=== PATIENT | male | born 1980 | race Hispanic/Latino ===

== ENCOUNTER 2021-12-28 10:43 | Day surgery (SDC) | payer MEDICAID ==
[2021-12-28] MEDS ORDERED: Albumin 25% 100 ML ONE ×2 (11:09→11:38)
[2021-12-28] MEDS ORDERED: Lidocaine 1% PF 5 ML VIAL ONE (11:09)
[2021-12-28 11:55] VITALS: BP 112/61; TEMP 98.5
== END 2021-12-28 12:35 | disposition home or self-care (01) ==
LOC: CSHULT 10:43
PROVIDERS: ATTEND Physician Assistant Medical
DX: K70.31 Alcoholic cirrhosis of liver with ascites (principal); K72.90 Hepatic failure, unspecified without coma; K76.7 Hepatorenal syndrome
CPT/HCPCS: 49083; P9047

== ENCOUNTER 2022-01-25 08:11 | Day surgery (SDC) | payer OTHER ==
[2022-01-25] MEDS ORDERED: Albumin 25% 200 ML ONE (08:51)
[2022-01-25] MEDS ORDERED: Sodium Bicarbonate 2.5 MEQ/5 ML VIAL ONE (08:51)
[2022-01-25] MEDS ORDERED: Lidocaine 1% (PF) 30 ML VIAL ONE (08:53)
[2022-01-25 09:07] VITALS: BP 122/73; TEMP 98.3
[2022-01-25 09:15] LABS: INR-International Normal Ratio 1.3; Prothrombin Time 13.8 sec (9.5-12.1)
[2022-01-25] MEDS ORDERED: FLU VACC QS2021-22(6MOS UP)/PF 60 MCG/0.5 ML SYRINGE IM ONE (09:15)
== END 2022-01-25 10:04 | disposition home or self-care (01) ==
LOC: CSHULT 08:11
PROVIDERS: ATTEND Physician Assistant Medical
DX: R18.8 Other ascites (principal)
CPT/HCPCS: 49083; 85610; J2001; P9047

== ENCOUNTER 2022-03-22 08:11 | Day surgery (SDC) | payer OTHER ==
[2022-03-22] MEDS ORDERED: Sodium Bicarbonate 2.5 MEQ/5 ML VIAL ONE (08:53)
[2022-03-22] MEDS ORDERED: Lidocaine 1% PF 5 ML VIAL ONE (08:53)
[2022-03-22] MEDS ORDERED: Albumin 25% 100 ML ONE ×2 (08:53)
[2022-03-22 10:49] VITALS: TEMP 98
== END 2022-03-22 10:40 | disposition home or self-care (01) ==
LOC: CSHULT 08:11
PROVIDERS: ATTEND Physician Assistant Medical
DX: R18.8 Other ascites (principal)
CPT/HCPCS: 49083; P9047

== ENCOUNTER 2022-04-05 09:39 | Day surgery (SDC) | payer OTHER ==
[2022-04-05] MEDS ORDERED: Lidocaine 1% PF 5 ML VIAL ONE (10:22)
[2022-04-05] MEDS ORDERED: Sodium Bicarbonate 2.5 MEQ/5 ML VIAL ONE (10:22)
[2022-04-05] MEDS ORDERED: Albumin 25% 200 ML ONE (10:22)
[2022-04-05 12:24] VITALS: TEMP 98.3
== END 2022-04-05 11:10 | disposition home or self-care (01) ==
LOC: CSHULT 09:39
PROVIDERS: ATTEND Physician Assistant Medical
DX: R18.8 Other ascites (principal)
CPT/HCPCS: 49083; P9047

== ENCOUNTER → 2022-04-19 | Day surgery (SDC) | payer OTHER ==
[~2022-04-19] MED LIST: Albumin 25% 200 ML ONE; Lidocaine 1% PF 5 ML VIAL ONE; Sodium Bicarbonate 2.5 MEQ/5 ML VIAL ONE
== END ==
LOC: CSHULT 10:27
PROVIDERS: ATTEND Physician Assistant Medical
DX: K70.31 Alcoholic cirrhosis of liver with ascites (principal); G93.40 Encephalopathy, unspecified; K76.7 Hepatorenal syndrome; K65.2 Spontaneous bacterial peritonitis; R60.0 Localized edema
CPT/HCPCS: 49083; P9047

== ENCOUNTER 2022-04-26 07:27 | Day surgery (SDC) | payer OTHER ==
[2022-04-26 07:03] VITALS: BMI 26.9
[2022-04-26] MEDS ORDERED: Lidocaine 1% PF 5 ML VIAL ONE (07:58)
[2022-04-26] MEDS ORDERED: Albumin 25% 200 ML ONE (07:58)
[2022-04-26] MEDS ORDERED: Sodium Bicarbonate 2.5 MEQ/5 ML VIAL ONE (07:59)
[2022-04-26 08:03] VITALS: BP 115/65; TEMP 97.8
== END 2022-04-26 10:04 | disposition home or self-care (01) ==
LOC: CSHULT 07:27
PROVIDERS: ATTEND Physician Assistant Medical
PROC: 0W9G3ZZ Drainage of Peritoneal Cavity, Percutaneous Approach (ICD-10-PCS; principal; 2022-04-26)
DX: R18.8 Other ascites (principal); Z88.8 Allergy status to other drugs, medicaments and biological substances
CPT/HCPCS: 49083; P9047

== ENCOUNTER 2022-05-03 11:25 | Observation (INO) | payer OTHER ==
[2022-05-03 12:09] LABS: Hemoglobin 9.4 g/dL (13.5-17.5); Mean Corpuscular HGB CONC 34.3 g/dL (32.0-36.0); Mean Corpuscular Hemoglobin 32.2 pg (27.0-33.0); Mean Corpuscular Volume 93.8 fl (81.2-95.1); Mean Platelet Volume 9.9 fl (7.4-10.4); Platelet Count 123 10x3/uL (150-450); RBC Distribution Width 13.3 % (11.5-14.5); Red Blood Cell (RBC) Count 2.92 10x6/uL (4.32-5.72); White Blood Cell (WBC) Count 3.1 10x3/uL (3.5-10.5)
[2022-05-03 12:18] LABS: ALT (SGPT) 15 U/L (8-55); AST (SGOT) 42 U/L (5-34); Albumin 2.8 g/dL (3.5-5.0); Alkaline Phosphatase 180 U/L (40-110); Anion Gap 12 mmol/L (10-20); BUN (Urea Nitrogen) 8 mg/dL (8.9-20.6); Bilirubin, Total 2.2 mg/dL (0.2-1.2); Calc. Creatinine Clearance 0 mL/min (70-130); Calcium 8.3 mg/dL (7.8-10.44); Carbon Dioxide 22 mmol/L (22-29); Chloride 105 mmol/L (98-107); Globulin 3.9 g/dL (2.4-3.5); Glucose 92 mg/dL (70-105); Potassium 3.5 mmol/L (3.5-5.1); Protein, Total 6.7 g/dL (6.0-8.3); Sodium 135 mmol/L (136-145)
[2022-05-03 12:46] LABS: MDiff Complete? YES
[2022-05-03 12:55] LABS: Band 1 % (5-11); Eosinophils 1 % (0-10); Lymphocytes 15 % (21-51); Monocytes 8 % (0-10); Neutrophil 74 % (42-75); Promyelocytes 1 % (0-0)
[2022-05-03 13:15] LABS: Hypochromia SLIGHT = 6-15 cells (100X) (0-5/hpf)
[2022-05-03 13:16] LABS: Elliptocytes SLIGHT = 2-5 cells (100X) (0-1/hpf); Platelet Morphology Comment Appears Adequate
[2022-05-03 13:27] LABS: INR-International Normal Ratio 1.4; Prothrombin Time 14.9 sec (9.5-12.1)
[2022-05-03] MEDS ORDERED: Ondansetron PF 4 MG/2 ML Vial IVP PRN (13:47)
[2022-05-03] MEDS ORDERED: Ondansetron ODT 4 MG TAB PO PRN (13:47)
[2022-05-03 14:54] LABS: Troponin I Less than 0.010 ng/mL (< 0.028)
[2022-05-03 16:42] VITALS: BMI 25.7
[2022-05-03 18:33] LABS: Troponin I Less than 0.010 ng/mL (< 0.028)
[2022-05-03] MEDS ORDERED: Atorvastatin Calcium 40 MG TAB PO SCH (21:00)
[2022-05-04 04:43] LABS: ALT (SGPT) 11 U/L (8-55); AST (SGOT) 33 U/L (5-34); Albumin 2.2 g/dL (3.5-5.0); Alkaline Phosphatase 166 U/L (40-110); Anion Gap 10 mmol/L (10-20); BUN (Urea Nitrogen) 9 mg/dL (8.9-20.6); Bilirubin, Total 2.2 mg/dL (0.2-1.2); Calc. Creatinine Clearance 132 mL/min (70-130); Calcium 7.8 mg/dL (7.8-10.44); Carbon Dioxide 22 mmol/L (22-29); Chloride 108 mmol/L (98-107); Cholesterol 75 mg/dl (< 200 Desired); Globulin 3.1 g/dL (2.4-3.5); Glucose 108 mg/dL (70-105); HDL Cholesterol 25 mg/dL (>60 Neg Risk); LDL Cholesterol, Calculated 39 mg/dL; Potassium 3.5 mmol/L (3.5-5.1); Protein, Total 5.3 g/dL (6.0-8.3); Sodium 136 mmol/L (136-145); Triglycerides 57 mg/dL (Less than 150)
[2022-05-04 05:09] LABS: %Monocytes 13.7 % (0.0-10.0)
[2022-05-04 05:10] LABS: #Eosinphils 0.1 10x3/uL (0.0-0.5); #Monocytes 0.4 10x3/uL (0.0-1.1); #Neutrophils 1.8 10x3/uL (1.5-8.4); %Basophils 0.7 % (0.0-2.0); %Eosinophils 3.5 % (0.0-6.0); %Lymphocytes 18.9 % (18.0-47.0); %Neutrophils 62.8 % (40.0-75.0); Hemoglobin 8.8 g/dL (13.5-17.5); Mean Corpuscular HGB CONC 33.2 g/dL (32.0-36.0); Mean Corpuscular Hemoglobin 31.5 pg (27.0-33.0); Mean Platelet Volume 9.6 fl (7.4-10.4); Platelet Count 103 10x3/uL (150-450); RBC Distribution Width 13.1 % (11.5-14.5); Red Blood Cell (RBC) Count 2.79 10x6/uL (4.32-5.72); White Blood Cell (WBC) Count 2.9 10x3/uL (3.5-10.5)
[2022-05-04] MEDS ORDERED: Aspirin 81 mg Enteric Coated Tablet PO SCH (09:00)
[2022-05-04] MEDS ORDERED: Enoxaparin Sodium 30 MG/0.3 ML SYRINGE SC SCH (09:00)
[2022-05-04 16:03] VITALS: BP 113/65; TEMP 99.3
== END 2022-05-04 16:15 | disposition home or self-care (01) ==
LOC: CSHERS 11:25 → CSHTELE 14:12
PROVIDERS: ADMIT Hospitalist; ATTEND Hospitalist
DX: R53.1 Weakness (principal); R20.0 Anesthesia of skin; I65.21 Occlusion and stenosis of right carotid artery; K72.10 Chronic hepatic failure without coma; K70.30 Alcoholic cirrhosis of liver without ascites; D63.8 Anemia in other chronic diseases classified elsewhere; J45.909 Unspecified asthma, uncomplicated; R07.9 Chest pain, unspecified; E87.1 Hypo-osmolality and hyponatremia; D69.6 Thrombocytopenia, unspecified; Z79.2 Long term (current) use of antibiotics; Z79.899 Other long term (current) drug therapy; Z88.8 Allergy status to other drugs, medicaments and biological substances; Z20.822 Contact with and (suspected) exposure to COVID-19; K70.31 Alcoholic cirrhosis of liver with ascites; K72.90 Hepatic failure, unspecified without coma; K76.7 Hepatorenal syndrome
CPT/HCPCS: 36415; 49083; 70450; 70551; 71045; 72141; 80053; 80061; 82140; 83036; 84484; 85025; 85610; 93005; 93010; 93306; 93880; 95819; 95957; P9047; U0003; U0005

== ENCOUNTER → 2022-05-03 | Day surgery (SDC) | payer OTHER ==
[~2022-05-03] MED LIST changes: +Albumin 25% 100 ML ONE; -Albumin 25% 200 ML ONE
== END | disposition home or self-care (01) ==
LOC: CSHULT 09:44
PROVIDERS: ATTEND Physician Assistant Medical
PROC: 0W9G3ZZ Drainage of Peritoneal Cavity, Percutaneous Approach (ICD-10-PCS; principal; 2022-05-03)
DX: K70.31 Alcoholic cirrhosis of liver with ascites (principal); K72.90 Hepatic failure, unspecified without coma; K76.7 Hepatorenal syndrome; Z88.8 Allergy status to other drugs, medicaments and biological substances
CPT/HCPCS: 49083; 93005; 93010; P9047

== ENCOUNTER → 2022-05-10 | Day surgery (SDC) | payer OTHER ==
[~2022-05-10] MED LIST changes: -Albumin 25% 100 ML ONE; +Albumin 25% 200 ML ONE
[2022-05-10 10:13] VITALS: TEMP 98.2
== END | disposition home or self-care (01) ==
LOC: CSHULT 07:37
PROVIDERS: ATTEND Physician Assistant Medical
PROC: 0W9G3ZZ Drainage of Peritoneal Cavity, Percutaneous Approach (ICD-10-PCS; principal; 2022-05-10)
DX: K70.31 Alcoholic cirrhosis of liver with ascites (principal); K72.90 Hepatic failure, unspecified without coma; K76.7 Hepatorenal syndrome; K65.2 Spontaneous bacterial peritonitis; Z88.8 Allergy status to other drugs, medicaments and biological substances
CPT/HCPCS: 49083; P9047

== ENCOUNTER 2022-05-17 07:34 | Day surgery (SDC) | payer OTHER ==
[2022-05-17] MEDS ORDERED: Albumin 25% 200 ML ONE (08:03)
[2022-05-17] MEDS ORDERED: Sodium Bicarbonate 2.5 MEQ/5 ML VIAL ONE (08:03)
[2022-05-17] MEDS ORDERED: Lidocaine 1% PF 5 ML VIAL ONE (08:03)
[2022-05-17 10:09] VITALS: BP 107/66; TEMP 98.8; BMI 26.9
== END 2022-05-17 10:50 | disposition home or self-care (01) ==
LOC: CSHULT 07:34
PROVIDERS: ATTEND Physician Assistant Medical
PROC: 0W9G3ZZ Drainage of Peritoneal Cavity, Percutaneous Approach (ICD-10-PCS; principal; 2022-05-17)
DX: K70.31 Alcoholic cirrhosis of liver with ascites (principal); K72.90 Hepatic failure, unspecified without coma; K76.7 Hepatorenal syndrome; K65.2 Spontaneous bacterial peritonitis; J45.909 Unspecified asthma, uncomplicated; Z88.8 Allergy status to other drugs, medicaments and biological substances
CPT/HCPCS: 49083; P9047

== ENCOUNTER 2022-05-24 07:43 | Day surgery (SDC) | payer OTHER ==
[2022-05-24] MEDS ORDERED: Sodium Bicarbonate 2.5 MEQ/5 ML VIAL ONE (08:25)
[2022-05-24] MEDS ORDERED: Albumin 25% 200 ML ONE (08:25)
[2022-05-24] MEDS ORDERED: Lidocaine 1% PF 5 ML VIAL ONE (08:25)
[2022-05-24 10:43] VITALS: BP 102/65; TEMP 98.6
[2022-05-24] MEDS ORDERED: Iopamidol 300 61% 100 ML VIAL FS ONE (14:45)
== END 2022-05-24 09:55 | disposition home or self-care (01) ==
LOC: CSHULT 07:43
PROVIDERS: ATTEND Physician Assistant Medical
PROC: 0W9G3ZZ Drainage of Peritoneal Cavity, Percutaneous Approach (ICD-10-PCS; principal; 2022-05-24)
DX: K74.60 Unspecified cirrhosis of liver (principal); R18.8 Other ascites; K76.7 Hepatorenal syndrome; I86.4 Gastric varices; R16.1 Splenomegaly, not elsewhere classified; Z88.8 Allergy status to other drugs, medicaments and biological substances
CPT/HCPCS: 49083; 74177; P9047; Q9967

== ENCOUNTER 2022-06-14 07:43 | Day surgery (SDC) | payer OTHER ==
[2022-06-14] MEDS ORDERED: Albumin 25% 200 ML ONE (08:11)
[2022-06-14] MEDS ORDERED: Sodium Bicarbonate 2.5 MEQ/5 ML VIAL ONE (08:12)
[2022-06-14] MEDS ORDERED: Lidocaine 1% PF 5 ML VIAL ONE (08:12)
[2022-06-14 08:29] VITALS: BP 114/69; TEMP 97.2
== END 2022-06-14 09:26 | disposition home or self-care (01) ==
LOC: CSHULT 07:43
PROVIDERS: ATTEND Physician Assistant Medical
PROC: 0W9G3ZZ Drainage of Peritoneal Cavity, Percutaneous Approach (ICD-10-PCS; principal; 2022-06-14)
DX: R18.8 Other ascites (principal); K70.30 Alcoholic cirrhosis of liver without ascites; K72.90 Hepatic failure, unspecified without coma; K76.7 Hepatorenal syndrome; K65.2 Spontaneous bacterial peritonitis
CPT/HCPCS: 49083; P9047

== ENCOUNTER 2022-06-21 07:43 | Day surgery (SDC) | payer OTHER ==
[2022-06-21] MEDS ORDERED: Lidocaine 1% PF 5 ML VIAL ONE (08:03)
[2022-06-21] MEDS ORDERED: Sodium Bicarbonate 2.5 MEQ/5 ML VIAL ONE (08:03)
[2022-06-21] MEDS ORDERED: Albumin 25% 200 ML ONE (08:03)
== END 2022-06-21 09:11 | disposition home or self-care (01) ==
LOC: CSHULT 07:43
PROVIDERS: ATTEND Physician Assistant Medical
PROC: 0W9G3ZZ Drainage of Peritoneal Cavity, Percutaneous Approach (ICD-10-PCS; principal; 2022-06-21)
DX: R18.8 Other ascites (principal); K74.60 Unspecified cirrhosis of liver
CPT/HCPCS: 49083; P9047

== ENCOUNTER 2022-06-28 07:49 | Day surgery (SDC) | payer OTHER ==
[2022-06-28] MEDS ORDERED: Albumin 25% 200 ML ONE (08:03)
[2022-06-28] MEDS ORDERED: Sodium Bicarbonate 2.5 MEQ/5 ML VIAL ONE (08:03)
[2022-06-28] MEDS ORDERED: Lidocaine 1% PF 5 ML VIAL ONE (08:03)
[2022-06-28 08:56] VITALS: BP 103/62; TEMP 98.2
== END 2022-06-28 09:34 | disposition home or self-care (01) ==
LOC: CSHULT 07:49
PROVIDERS: ATTEND Physician Assistant Medical
PROC: 0W9G3ZZ Drainage of Peritoneal Cavity, Percutaneous Approach (ICD-10-PCS; principal; 2022-06-28)
DX: R18.8 Other ascites (principal)
CPT/HCPCS: 49083; P9047

== ENCOUNTER 2022-07-05 07:43 | Day surgery (SDC) | payer OTHER ==
[2022-07-05 07:59] VITALS: BP 115/63; TEMP 97.9
[2022-07-05 08:13] LABS: Hemoglobin 10.7 g/dL (13.5-17.5); Mean Corpuscular HGB CONC 34.1 g/dL (32.0-36.0); Mean Corpuscular Hemoglobin 32.2 pg (27.0-33.0); Mean Corpuscular Volume 94.6 fl (81.2-95.1); Mean Platelet Volume 9.8 fl (7.4-10.4); Platelet Count 109 10x3/uL (150-450); RBC Distribution Width 13.6 % (11.5-14.5); Red Blood Cell (RBC) Count 3.32 10x6/uL (4.32-5.72); White Blood Cell (WBC) Count 2.9 10x3/uL (3.5-10.5)
[2022-07-05 08:20] LABS: INR-International Normal Ratio 1.3; Prothrombin Time 14.3 sec (9.5-12.1)
== END 2022-07-05 09:38 | disposition home or self-care (01) ==
LOC: CSHULT 07:43
PROVIDERS: ATTEND Physician Assistant Medical
PROC: 0W9G3ZZ Drainage of Peritoneal Cavity, Percutaneous Approach (ICD-10-PCS; principal; 2022-07-05)
DX: R18.8 Other ascites (principal); K72.90 Hepatic failure, unspecified without coma
CPT/HCPCS: 49083; 85027; 85610; P9047

== ENCOUNTER 2022-07-12 07:45 | Day surgery (SDC) | payer OTHER ==
[2022-07-12] MEDS ORDERED: Sodium Bicarbonate 2.5 MEQ/5 ML VIAL ONE (08:17)
[2022-07-12] MEDS ORDERED: Albumin 25% 200 ML ONE (08:17)
[2022-07-12] MEDS ORDERED: Lidocaine 1% PF 5 ML VIAL ONE (08:17)
[2022-07-12 08:25] VITALS: BP 108/68; TEMP 98.2
== END 2022-07-12 09:37 | disposition home or self-care (01) ==
LOC: CSHULT 07:45
PROVIDERS: ATTEND Physician Assistant Medical
PROC: 0W9G3ZZ Drainage of Peritoneal Cavity, Percutaneous Approach (ICD-10-PCS; principal; 2022-07-12)
DX: R18.8 Other ascites (principal)
CPT/HCPCS: 49083; P9047

== ENCOUNTER 2022-07-14 16:09 | Outpatient (CLI) | payer OTHER | END 2022-07-14 16:10 | disposition home or self-care (01) | LOC: CSHCT 16:09 | PROVIDERS: ATTEND Internal Medicine Transplant Hepatology | DX: K74.69 Other cirrhosis of liver (principal); R18.8 Other ascites ==

== ENCOUNTER 2022-07-26 07:36 | Day surgery (SDC) | payer OTHER ==
[2022-07-21 06:49] VITALS: BMI 26.9
[2022-07-26] MEDS ORDERED: Albumin 25% 100 ML ONE (07:52)
[2022-07-26] MEDS ORDERED: Sodium Bicarbonate 2.5 MEQ/5 ML VIAL ONE (07:53)
[2022-07-26] MEDS ORDERED: Lidocaine 1% PF 5 ML VIAL ONE (07:53)
[2022-07-26 09:37] VITALS: BP 118/66; TEMP 97.2
== END 2022-07-26 09:20 | disposition home or self-care (01) ==
LOC: CSHULT 07:36
PROVIDERS: ATTEND Physician Assistant Medical
PROC: 0W9G3ZZ Drainage of Peritoneal Cavity, Percutaneous Approach (ICD-10-PCS; principal; 2022-07-26)
DX: R18.8 Other ascites (principal)
CPT/HCPCS: 49083; P9047

== ENCOUNTER 2022-08-02 07:44 | Day surgery (SDC) | payer OTHER ==
[2022-08-02] MEDS ORDERED: Sodium Bicarbonate 2.5 MEQ/5 ML VIAL ONE (08:00)
[2022-08-02] MEDS ORDERED: Lidocaine 1% PF 5 ML VIAL ONE (08:00)
[2022-08-02] MEDS ORDERED: Albumin 25% 200 ML ONE (08:00)
== END 2022-08-02 09:12 | disposition home or self-care (01) ==
LOC: CSHULT 07:44
PROVIDERS: ATTEND Physician Assistant Medical
PROC: 0W9G3ZZ Drainage of Peritoneal Cavity, Percutaneous Approach (ICD-10-PCS; principal; 2022-08-02)
DX: R18.8 Other ascites (principal)
CPT/HCPCS: 49083; P9047

== ENCOUNTER 2022-08-09 07:33 | Day surgery (SDC) | payer OTHER ==
[2022-08-09] MEDS ORDERED: Albumin 25% 100 ML ONE ×2 (07:51)
[2022-08-09] MEDS ORDERED: Lidocaine 1% PF 5 ML VIAL ONE (07:51)
[2022-08-09] MEDS ORDERED: Sodium Bicarbonate 2.5 MEQ/5 ML VIAL ONE (07:52)
[2022-08-09 07:58] VITALS: BP 110/69; TEMP 98.4
[2022-08-09 08:03] LABS: #Eosinphils 0.1 10x3/uL (0.0-0.5); #Monocytes 0.4 10x3/uL (0.0-1.1); #Neutrophils 1.6 10x3/uL (1.5-8.4); %Basophils 0.7 % (0.0-2.0); %Eosinophils 2.7 % (0.0-6.0); %Lymphocytes 28.6 % (18.0-47.0); %Monocytes 12.6 % (0.0-10.0); %Neutrophils 55.1 % (40.0-75.0); Hemoglobin 11.8 g/dL (13.5-17.5); Mean Corpuscular HGB CONC 34.8 g/dL (32.0-36.0); Mean Corpuscular Hemoglobin 32.8 pg (27.0-33.0); Mean Corpuscular Volume 94.2 fl (81.2-95.1); Mean Platelet Volume 9.5 fl (7.4-10.4); Platelet Count 105 10x3/uL (150-450); RBC Distribution Width 13.3 % (11.5-14.5); White Blood Cell (WBC) Count 2.9 10x3/uL (3.5-10.5)
[2022-08-09 08:14] LABS: INR-International Normal Ratio 1.3; Prothrombin Time 13.7 sec (9.5-12.1)
[2022-08-09] MEDS ORDERED: Prevnar 13-Val Conj/PF 0.5 ML SYRINGE IM ONE (08:15)
== END 2022-08-09 09:07 | disposition home or self-care (01) ==
LOC: CSHULT 07:33
PROVIDERS: ATTEND Physician Assistant Medical
PROC: 0W9G3ZZ Drainage of Peritoneal Cavity, Percutaneous Approach (ICD-10-PCS; principal; 2022-08-09)
DX: R18.8 Other ascites (principal)
CPT/HCPCS: 49083; 85025; 85610; P9047

== ENCOUNTER 2022-08-16 07:41 | Day surgery (SDC) | payer OTHER ==
[2022-08-16] MEDS ORDERED: Sodium Bicarbonate 2.5 MEQ/5 ML VIAL ONE (07:59)
[2022-08-16] MEDS ORDERED: Albumin 25% 100 ML ONE (07:59)
[2022-08-16] MEDS ORDERED: Lidocaine 1% PF 5 ML VIAL ONE (07:59)
[2022-08-16 08:24] VITALS: BP 119/67; TEMP 97.8
== END 2022-08-16 08:55 | disposition home or self-care (01) ==
LOC: CSHULT 07:41
PROVIDERS: ATTEND Physician Assistant Medical
PROC: 0W9G3ZZ Drainage of Peritoneal Cavity, Percutaneous Approach (ICD-10-PCS; principal; 2022-08-16)
DX: R18.8 Other ascites (principal)
CPT/HCPCS: 49083; P9047

== ENCOUNTER 2022-08-23 07:33 | Day surgery (SDC) | payer OTHER ==
[2022-08-23] MEDS ORDERED: Albumin 25% 200 ML ONE (07:46)
[2022-08-23] MEDS ORDERED: Lidocaine 1% PF 5 ML VIAL ONE (07:46)
[2022-08-23] MEDS ORDERED: Sodium Bicarbonate 2.5 MEQ/5 ML VIAL ONE (07:46)
[2022-08-23 09:20] VITALS: BP 117/69; TEMP 98.8; BMI 26.9
== END 2022-08-23 09:15 | disposition home or self-care (01) ==
LOC: CSHULT 07:33
PROVIDERS: ATTEND Physician Assistant Medical
PROC: 0W9G3ZZ Drainage of Peritoneal Cavity, Percutaneous Approach (ICD-10-PCS; principal; 2022-08-23)
DX: K70.31 Alcoholic cirrhosis of liver with ascites (principal); K72.10 Chronic hepatic failure without coma; J45.909 Unspecified asthma, uncomplicated; R07.9 Chest pain, unspecified; E87.1 Hypo-osmolality and hyponatremia; D64.9 Anemia, unspecified; Z79.899 Other long term (current) drug therapy; Z88.8 Allergy status to other drugs, medicaments and biological substances
CPT/HCPCS: 49083; P9047

== ENCOUNTER 2022-08-30 07:35 | Day surgery (SDC) | payer OTHER ==
[2022-08-30] MEDS ORDERED: Lidocaine 1% MPF 2 ML VIAL ONE (07:48)
[2022-08-30] MEDS ORDERED: Albumin 25% 0 ML ONE (07:48)
[2022-08-30] MEDS ORDERED: Sodium Bicarbonate 2.5 MEQ/5 ML VIAL ONE (07:49)
[2022-08-30 07:52] VITALS: BP 121/73; TEMP 98.4
[2022-08-30] MEDS ORDERED: FLU VACC QS2022-23(6MOS UP)/PF 60 MCG/0.5 ML SYRINGE IM ONE (08:00)
[2022-08-30] MEDS ORDERED: Albumin 25% 100 ML ONE (08:57)
== END 2022-08-30 09:02 | disposition home or self-care (01) ==
LOC: CSHULT 07:35
PROVIDERS: ATTEND Physician Assistant Medical
PROC: BW40ZZZ Ultrasonography of Abdomen (ICD-10-PCS; principal; 2022-08-30)
PROC: 0W9G3ZZ Drainage of Peritoneal Cavity, Percutaneous Approach (ICD-10-PCS; principal; 2022-08-30)
DX: R18.8 Other ascites (principal)
CPT/HCPCS: 49083; P9047

== ENCOUNTER 2022-09-06 07:35 | Day surgery (SDC) | payer OTHER ==
[2022-09-06] MEDS ORDERED: Sodium Bicarbonate 2.5 MEQ/5 ML VIAL ONE (08:03)
[2022-09-06] MEDS ORDERED: Lidocaine 1% MPF 2 ML VIAL ONE (08:03)
[2022-09-06 08:05] VITALS: BP 111/68; TEMP 98.4
== END 2022-09-06 09:21 | disposition home or self-care (01) ==
LOC: CSHULT 07:35
PROVIDERS: ATTEND Physician Assistant Medical
PROC: 0W9G30Z Drainage of Peritoneal Cavity with Drainage Device, Percutaneous Approach (ICD-10-PCS; principal; 2022-09-06)
DX: R18.8 Other ascites (principal)
CPT/HCPCS: 49083

== ENCOUNTER → 2022-09-13 | Day surgery (SDC) | payer OTHER ==
[~2022-09-13] MED LIST changes: -Albumin 25% 200 ML ONE
[2022-09-13 08:11] VITALS: BP 106/63; TEMP 98.7
[2022-09-13 08:16] LABS: Hemoglobin 12.8 g/dL (13.5-17.5); Mean Corpuscular HGB CONC 35.3 g/dL (32.0-36.0); Mean Corpuscular Hemoglobin 33.2 pg (27.0-33.0); Mean Platelet Volume 9.5 fl (7.4-10.4); Platelet Count 108 10x3/uL (150-450); Red Blood Cell (RBC) Count 3.86 10x6/uL (4.32-5.72); White Blood Cell (WBC) Count 2.6 10x3/uL (3.5-10.5)
[2022-09-13 08:20] LABS: INR-International Normal Ratio 1.2; Prothrombin Time 12.6 sec (9.5-12.1)
== END ==
LOC: CSHULT 07:39
PROVIDERS: ATTEND Physician Assistant Medical
DX: R18.8 Other ascites (principal); Z53.09 Procedure and treatment not carried out because of other contraindication
CPT/HCPCS: 76705; 85027; 85610

== ENCOUNTER 2022-09-20 07:54 | Day surgery (SDC) | payer OTHER ==
[2022-09-20] MEDS ORDERED: Lidocaine 1% MPF 2 ML VIAL ONE (08:11)
[2022-09-20] MEDS ORDERED: Sodium Bicarbonate 2.5 MEQ/5 ML VIAL ONE (08:11)
[2022-09-20 14:51] VITALS: BP 123/71; TEMP 98
== END 2022-09-20 09:45 | disposition home or self-care (01) ==
LOC: CSHULT 07:54
PROVIDERS: ATTEND Physician Assistant Medical
PROC: 0W9G3ZZ Drainage of Peritoneal Cavity, Percutaneous Approach (ICD-10-PCS; principal; 2022-09-20)
DX: R18.8 Other ascites (principal)
CPT/HCPCS: 49083

== ENCOUNTER 2022-10-04 07:39 | Day surgery (SDC) | payer OTHER ==
[2022-10-04] MEDS ORDERED: FLU VACC QS2022-23(6MOS UP)/PF 60 MCG/0.5 ML SYRINGE IM ONE (08:15)
[2022-10-04] MEDS ORDERED: Lidocaine 1% PF 5 ML VIAL ONE (08:30)
[2022-10-04] MEDS ORDERED: Sodium Bicarbonate 2.5 MEQ/5 ML VIAL ONE (08:31)
[2022-10-04] MEDS ORDERED: Albumin 25% 200 ML ONE (09:06)
[2022-10-04 09:17] VITALS: BP 118/71; TEMP 98.2
== END 2022-10-04 09:30 | disposition home or self-care (01) ==
LOC: CSHULT 07:39
PROVIDERS: ATTEND Physician Assistant Medical
PROC: 0W9G3ZX Drainage of Peritoneal Cavity, Percutaneous Approach, Diagnostic (ICD-10-PCS; principal; 2022-10-04)
DX: R18.8 Other ascites (principal); Z88.8 Allergy status to other drugs, medicaments and biological substances
CPT/HCPCS: 49083; P9047

== ENCOUNTER 2022-10-18 07:31 | Day surgery (SDC) | payer OTHER ==
[2022-10-18] MEDS ORDERED: Albumin 25% 0 ML ONE (07:50)
[2022-10-18] MEDS ORDERED: Lidocaine 1% PF 5 ML VIAL ONE (07:50)
[2022-10-18] MEDS ORDERED: Sodium Bicarbonate 2.5 MEQ/5 ML VIAL ONE (07:50)
[2022-10-18 08:06] LABS: #Eosinphils 0.1 10x3/uL (0.0-0.5); #Monocytes 0.3 10x3/uL (0.0-1.1); #Neutrophils 1.5 10x3/uL (1.5-8.4); %Basophils 1.1 % (0.0-2.0); %Eosinophils 2.5 % (0.0-6.0); %Lymphocytes 29.7 % (18.0-47.0); %Monocytes 12.3 % (0.0-10.0); %Neutrophils 54.4 % (40.0-75.0); INR-International Normal Ratio 1.2; Mean Corpuscular HGB CONC 35.1 g/dL (32.0-36.0); Mean Corpuscular Hemoglobin 32.7 pg (27.0-33.0); Platelet Count 103 10x3/uL (150-450); Prothrombin Time 12.8 sec (9.5-12.1); RBC Distribution Width 12.5 % (11.5-14.5); Red Blood Cell (RBC) Count 3.98 10x6/uL (4.32-5.72); White Blood Cell (WBC) Count 2.8 10x3/uL (3.5-10.5)
== END 2022-10-18 08:45 | disposition home or self-care (01) ==
LOC: CSHULT 07:31
PROVIDERS: ATTEND Physician Assistant Medical
PROC: 0W9G30Z Drainage of Peritoneal Cavity with Drainage Device, Percutaneous Approach (ICD-10-PCS; principal; 2022-10-18)
DX: R18.8 Other ascites (principal)
CPT/HCPCS: 85025; 85610; P9047

== ENCOUNTER 2022-11-01 07:56 | Day surgery (SDC) | payer OTHER ==
[2022-11-01 08:31] VITALS: BP 96/50; TEMP 98.8
== END 2022-11-01 08:55 | disposition home or self-care (01) ==
LOC: CSHULT 07:56
PROVIDERS: ATTEND Physician Assistant Medical
PROC: 0W9G30Z Drainage of Peritoneal Cavity with Drainage Device, Percutaneous Approach (ICD-10-PCS; principal; 2022-11-01)
DX: R18.8 Other ascites (principal)
CPT/HCPCS: 49083

== ENCOUNTER 2022-11-15 07:35 | Day surgery (SDC) | payer OTHER ==
[2022-11-15] MEDS ORDERED: Sodium Bicarbonate 2.5 MEQ/5 ML VIAL ONE (07:57)
[2022-11-15] MEDS ORDERED: Lidocaine 1% PF 5 ML VIAL ONE (07:57)
[2022-11-15 08:57] VITALS: BP 96/53; TEMP 98.8
== END 2022-11-15 08:58 | disposition home or self-care (01) ==
LOC: CSHULT 07:35
PROVIDERS: ATTEND Physician Assistant Medical
PROC: 0W9G3ZZ Drainage of Peritoneal Cavity, Percutaneous Approach (ICD-10-PCS; principal; 2022-11-15)
DX: R18.8 Other ascites (principal)
CPT/HCPCS: 49083

== ENCOUNTER 2022-12-06 07:41 | Day surgery (SDC) | payer OTHER ==
[2022-12-06 07:23] VITALS: BMI 26.9
[2022-12-06] MEDS ORDERED: FLU VACC QS2022-23(6MOS UP)/PF 60 MCG/0.5 ML SYRINGE IM ONE (07:45)
[2022-12-06] MEDS ORDERED: Lidocaine 1% PF 5 ML VIAL ONE (07:58)
[2022-12-06] MEDS ORDERED: Sodium Bicarbonate 2.5 MEQ/5 ML VIAL ONE (07:58)
[2022-12-06 08:29] VITALS: BP 111/66; TEMP 98.6
== END 2022-12-06 08:50 | disposition home or self-care (01) ==
LOC: CSHULT 07:41
PROVIDERS: ATTEND Physician Assistant Medical
PROC: 0W9G3ZX Drainage of Peritoneal Cavity, Percutaneous Approach, Diagnostic (ICD-10-PCS; principal; 2022-12-06)
DX: K70.31 Alcoholic cirrhosis of liver with ascites (principal); K72.90 Hepatic failure, unspecified without coma; K76.7 Hepatorenal syndrome; K65.2 Spontaneous bacterial peritonitis
CPT/HCPCS: 49083

== ENCOUNTER 2022-12-13 07:40 | Day surgery (SDC) | payer OTHER ==
[2022-12-13] MEDS ORDERED: Sodium Bicarbonate 2.5 MEQ/5 ML VIAL ONE (08:04)
[2022-12-13] MEDS ORDERED: Lidocaine 1% PF 5 ML VIAL ONE (08:04)
[2022-12-13 08:11] VITALS: BP 115/72; TEMP 98
== END 2022-12-13 09:00 | disposition home or self-care (01) ==
LOC: CSHULT 07:40
PROVIDERS: ATTEND Physician Assistant Medical
PROC: 0W9G3ZZ Drainage of Peritoneal Cavity, Percutaneous Approach (ICD-10-PCS; principal; 2022-12-13)
DX: R18.8 Other ascites (principal)
CPT/HCPCS: 49083

== ENCOUNTER 2022-12-20 07:32 | Day surgery (SDC) | payer OTHER ==
[2022-12-20] MEDS ORDERED: Sodium Bicarbonate 2.5 MEQ/5 ML VIAL ONE (07:38)
[2022-12-20] MEDS ORDERED: Lidocaine 1% PF 5 ML VIAL ONE (07:38)
[2022-12-20 08:43] VITALS: BP 116/74; TEMP 99.2
== END 2022-12-20 08:35 | disposition home or self-care (01) ==
LOC: CSHULT 07:32
PROVIDERS: ATTEND Physician Assistant Medical
PROC: 0W9G3ZZ Drainage of Peritoneal Cavity, Percutaneous Approach (ICD-10-PCS; principal; 2022-12-20)
DX: K70.31 Alcoholic cirrhosis of liver with ascites (principal); K72.90 Hepatic failure, unspecified without coma; K76.7 Hepatorenal syndrome; K65.2 Spontaneous bacterial peritonitis
CPT/HCPCS: 49083

== ENCOUNTER → 2023-01-03 | Day surgery (SDC) | payer OTHER ==
[2022-12-29 09:17] VITALS: BMI 26.9
[2023-01-03 08:41] LABS: Hemoglobin 11.8 g/dL (13.5-17.5); Mean Corpuscular HGB CONC 34.2 g/dL (32.0-36.0); Mean Corpuscular Hemoglobin 32.3 pg (27.0-33.0); Mean Corpuscular Volume 94.5 fl (81.2-95.1); Mean Platelet Volume 8.8 fl (7.4-10.4); Platelet Count 149 10x3/uL (150-450); RBC Distribution Width 13.3 % (11.5-14.5); Red Blood Cell (RBC) Count 3.65 10x6/uL (4.32-5.72); White Blood Cell (WBC) Count 3.2 10x3/uL (3.5-10.5)
[2023-01-03 08:53] LABS: INR-International Normal Ratio 1.1; Prothrombin Time 12.3 sec (9.5-12.1)
== END | disposition home or self-care (01) ==
LOC: CSHULT 07:37
PROVIDERS: ATTEND Physician Assistant Medical
PROC: 0W9G3ZZ Drainage of Peritoneal Cavity, Percutaneous Approach (ICD-10-PCS; principal; 2023-01-03)
DX: R18.8 Other ascites (principal)
CPT/HCPCS: 49083; 85027; 85610

== ENCOUNTER → 2023-01-10 | Day surgery (SDC) | payer OTHER | END | disposition home or self-care (01) | LOC: CSHULT 07:48 | PROVIDERS: ATTEND Physician Assistant Medical | PROC: 0W9G3ZZ Drainage of Peritoneal Cavity, Percutaneous Approach (ICD-10-PCS; principal; 2023-01-10) | DX: R18.8 Other ascites (principal) | CPT/HCPCS: 49083 ==

== ENCOUNTER → 2023-01-17 | Day surgery (SDC) | payer OTHER ==
[2023-01-16 08:23] VITALS: BMI 26.9
[~2023-01-17] MED LIST changes: +FLU VACC QS2022-23(6MOS UP)/PF 60 MCG/0.5 ML SYRINGE IM ONE
== END ==
LOC: CSHULT 07:39
PROVIDERS: ATTEND Physician Assistant Medical
PROC: 0W9G30Z Drainage of Peritoneal Cavity with Drainage Device, Percutaneous Approach (ICD-10-PCS; principal; 2023-01-17)
DX: K70.31 Alcoholic cirrhosis of liver with ascites (principal); K72.90 Hepatic failure, unspecified without coma; K76.7 Hepatorenal syndrome; K65.2 Spontaneous bacterial peritonitis
CPT/HCPCS: 49083

== ENCOUNTER → 2023-01-24 | Day surgery (SDC) | payer OTHER ==
[2023-01-18 07:42] VITALS: BMI 26.9
[~2023-01-24] MED LIST changes: -FLU VACC QS2022-23(6MOS UP)/PF 60 MCG/0.5 ML SYRINGE IM ONE
== END ==
LOC: CSHULT 07:35
PROVIDERS: ATTEND Physician Assistant Medical
PROC: 0W9G3ZZ Drainage of Peritoneal Cavity, Percutaneous Approach (ICD-10-PCS; principal; 2023-01-24)
DX: R18.8 Other ascites (principal)
CPT/HCPCS: 49083

== ENCOUNTER 2023-01-31 07:44 | Day surgery (SDC) | payer OTHER ==
[2023-01-31] MEDS ORDERED: Sodium Bicarbonate 2.5 MEQ/5 ML VIAL ONE (07:59)
[2023-01-31] MEDS ORDERED: Lidocaine 1% PF 5 ML VIAL ONE (07:59)
[2023-01-31 08:45] VITALS: BP 128/72; TEMP 98.7
[2023-01-31 08:45] LABS: INR-International Normal Ratio 1.1
[2023-01-31 08:47] LABS: Anion Gap 12 mmol/L (10-20); BUN (Urea Nitrogen) 9 mg/dL (8.9-20.6); Calc. Creatinine Clearance 131 mL/min (70-130); Calcium 8.4 mg/dL (7.8-10.44); Carbon Dioxide 21 mmol/L (22-29); Chloride 110 mmol/L (98-107); Estimated GFR 116; Glucose 113 mg/dL (70-105); Potassium 3.1 mmol/L (3.5-5.1); Sodium 140 mmol/L (136-145)
[2023-01-31 08:50] LABS: #Monocytes 0.5 10x3/uL (0.0-1.1); #Neutrophils 4.3 10x3/uL (1.5-8.4); %Basophils 0.4 % (0.0-2.0); %Eosinophils 0.6 % (0.0-6.0); %Lymphocytes 8.8 % (18.0-47.0); %Monocytes 8.5 % (0.0-10.0); %Neutrophils 81.5 % (40.0-75.0); Mean Corpuscular Hemoglobin 31.3 pg (27.0-33.0); Mean Corpuscular Volume 91.8 fl (81.2-95.1); Mean Platelet Volume 9.4 fl (7.4-10.4); Platelet Count 140 10x3/uL (150-450); RBC Distribution Width 12.5 % (11.5-14.5); Red Blood Cell (RBC) Count 4.16 10x6/uL (4.32-5.72); White Blood Cell (WBC) Count 5.3 10x3/uL (3.5-10.5)
== END 2023-01-31 08:54 | disposition home or self-care (01) ==
LOC: CSHULT 07:44
PROVIDERS: ATTEND Physician Assistant Medical
PROC: 0W9G30Z Drainage of Peritoneal Cavity with Drainage Device, Percutaneous Approach (ICD-10-PCS; principal; 2023-01-31)
DX: R18.8 Other ascites (principal)
CPT/HCPCS: 49083; 80048; 85025; 85610

== ENCOUNTER → 2023-02-28 | Day surgery (SDC) | payer OTHER | LOC: CSHULT 07:39 | PROVIDERS: ATTEND Physician Assistant Medical | PROC: 0W9G30Z Drainage of Peritoneal Cavity with Drainage Device, Percutaneous Approach (ICD-10-PCS; principal; 2023-02-28) | DX: K70.31 Alcoholic cirrhosis of liver with ascites (principal); K72.90 Hepatic failure, unspecified without coma; K76.7 Hepatorenal syndrome; K65.2 Spontaneous bacterial peritonitis | CPT/HCPCS: 76705 ==

== ENCOUNTER → 2023-03-07 | Day surgery (SDC) | payer OTHER ==
[2023-03-07 08:46] LABS: Mean Corpuscular HGB CONC 32.8 g/dL (32.0-36.0); Mean Corpuscular Hemoglobin 30.6 pg (27.0-33.0); Mean Corpuscular Volume 93.4 fl (81.2-95.1); Mean Platelet Volume 8.8 fl (7.4-10.4); Platelet Count 134 10x3/uL (150-450); RBC Distribution Width 12.5 % (11.5-14.5); Red Blood Cell (RBC) Count 3.92 10x6/uL (4.32-5.72); White Blood Cell (WBC) Count 2.5 10x3/uL (3.5-10.5)
[2023-03-07 08:53] LABS: INR-International Normal Ratio 1.2; Prothrombin Time 12.4 sec (9.5-12.1)
== END ==
LOC: CSHULT 07:36
PROVIDERS: ATTEND Physician Assistant Medical
PROC: 0W9G30Z Drainage of Peritoneal Cavity with Drainage Device, Percutaneous Approach (ICD-10-PCS; principal; 2023-03-07)
DX: K70.31 Alcoholic cirrhosis of liver with ascites (principal); K72.90 Hepatic failure, unspecified without coma; K76.7 Hepatorenal syndrome; K65.2 Spontaneous bacterial peritonitis
CPT/HCPCS: 49083; 85027; 85610

== ENCOUNTER → 2023-03-21 | Day surgery (SDC) | payer OTHER | LOC: CSHULT 07:32 | PROVIDERS: ATTEND Physician Assistant Medical | PROC: 0W9G30Z Drainage of Peritoneal Cavity with Drainage Device, Percutaneous Approach (ICD-10-PCS; principal; 2023-03-21) | DX: K70.31 Alcoholic cirrhosis of liver with ascites (principal); K72.90 Hepatic failure, unspecified without coma; K76.7 Hepatorenal syndrome; K65.2 Spontaneous bacterial peritonitis | CPT/HCPCS: 76705 ==

== ENCOUNTER 2023-03-28 07:35 | Day surgery (SDC) | payer OTHER ==
[2023-03-28] MEDS ORDERED: Lidocaine 1% PF 5 ML VIAL ONE (07:48)
[2023-03-28] MEDS ORDERED: Sodium Bicarbonate 2.5 MEQ/5 ML VIAL ONE (07:48)
[2023-03-28 10:23] VITALS: BP 124/75; TEMP 98.7; BMI 26.9
== END 2023-03-28 10:24 | disposition home or self-care (01) ==
LOC: CSHULT 07:35
PROVIDERS: ATTEND Physician Assistant Medical
PROC: 0W9G30Z Drainage of Peritoneal Cavity with Drainage Device, Percutaneous Approach (ICD-10-PCS; principal; 2023-03-28)
DX: K70.31 Alcoholic cirrhosis of liver with ascites (principal); K72.90 Hepatic failure, unspecified without coma; K76.82 Hepatic encephalopathy; K65.2 Spontaneous bacterial peritonitis
CPT/HCPCS: 49083

== ENCOUNTER → 2023-05-09 | Day surgery (SDC) | payer OTHER ==
[2023-05-09 08:27] LABS: #Monocytes 0.3 10x3/uL (0.0-1.1); #Neutrophils 1.2 10x3/uL (1.5-8.4); %Basophils 1.5 % (0.0-2.0); %Eosinophils 1.9 % (0.0-6.0); %Lymphocytes 24.8 % (18.0-47.0); %Monocytes 13.1 % (0.0-10.0); %Neutrophils 58.7 % (40.0-75.0); Hemoglobin 12.8 g/dL (13.5-17.5); Mean Corpuscular HGB CONC 32.9 g/dL (32.0-36.0); Mean Corpuscular Hemoglobin 31.1 pg (27.0-33.0); Mean Corpuscular Volume 94.6 fl (81.2-95.1); Mean Platelet Volume 10.4 fl (7.4-10.4); Platelet Count 114 10x3/uL (150-450); RBC Distribution Width 14.6 % (11.5-14.5); Red Blood Cell (RBC) Count 4.11 10x6/uL (4.32-5.72); White Blood Cell (WBC) Count 2.1 10x3/uL (3.5-10.5)
[2023-05-09 08:37] LABS: INR-International Normal Ratio 1.2; Prothrombin Time 12.5 sec (9.5-12.1)
[2023-05-09 08:39] LABS: Anion Gap 10 mmol/L (10-20); BUN (Urea Nitrogen) 8 mg/dL (8.9-20.6); Calc. Creatinine Clearance 0 mL/min (70-130); Calcium 8.4 mg/dL (7.8-10.44); Carbon Dioxide 22 mmol/L (22-29); Chloride 111 mmol/L (98-107); Estimated GFR 114; Glucose 101 mg/dL (70-105); Potassium 3.1 mmol/L (3.5-5.1); Sodium 140 mmol/L (136-145)
== END ==
LOC: CSHULT 07:31
PROVIDERS: ATTEND Physician Assistant Medical
PROC: 0W9G3ZZ Drainage of Peritoneal Cavity, Percutaneous Approach (ICD-10-PCS; principal; 2023-05-09)
DX: K70.31 Alcoholic cirrhosis of liver with ascites (principal); Z88.8 Allergy status to other drugs, medicaments and biological substances
CPT/HCPCS: 49083; 80048; 85025; 85610

== ENCOUNTER 2023-05-16 07:43 | Day surgery (SDC) | payer OTHER ==
[2023-05-16] MEDS ORDERED: Sodium Bicarbonate 2.5 MEQ/5 ML VIAL ONE (08:06)
[2023-05-16] MEDS ORDERED: Lidocaine 1% PF 5 ML VIAL ONE (08:06)
[2023-05-16 08:29] VITALS: BP 122/72; TEMP 97.9
== END 2023-05-16 08:29 | disposition home or self-care (01) ==
LOC: CSHULT 07:43
PROVIDERS: ATTEND Physician Assistant Medical
PROC: 0W9G30Z Drainage of Peritoneal Cavity with Drainage Device, Percutaneous Approach (ICD-10-PCS; principal; 2023-05-16)
DX: K70.31 Alcoholic cirrhosis of liver with ascites (principal)
CPT/HCPCS: 76705

== ENCOUNTER → 2023-06-06 | Day surgery (SDC) | payer OTHER | LOC: CSHULT 07:25 | PROVIDERS: ATTEND Physician Assistant Medical | PROC: 0W9G30Z Drainage of Peritoneal Cavity with Drainage Device, Percutaneous Approach (ICD-10-PCS; principal; 2023-06-06) | DX: K70.31 Alcoholic cirrhosis of liver with ascites (principal); Z88.8 Allergy status to other drugs, medicaments and biological substances | CPT/HCPCS: 76705 ==

== ENCOUNTER → 2023-06-27 | Day surgery (SDC) | payer OTHER | LOC: CSHULT 07:28 | PROVIDERS: ATTEND Physician Assistant Medical | DX: K70.31 Alcoholic cirrhosis of liver with ascites (principal); Z88.6 Allergy status to analgesic agent | CPT/HCPCS: 76705 ==

== ENCOUNTER → 2023-07-25 | Day surgery (SDC) | payer OTHER | LOC: CSHULT 07:45 | PROVIDERS: ATTEND Physician Assistant Medical | DX: K70.31 Alcoholic cirrhosis of liver with ascites (principal); Z88.8 Allergy status to other drugs, medicaments and biological substances | CPT/HCPCS: 76705 ==

== ENCOUNTER 2023-08-01 07:31 | Day surgery (SDC) | payer OTHER ==
[2023-08-01 08:41] VITALS: BMI 27.1
[2023-08-01 09:12] LABS: #Eosinphils 0.1 10x3/uL (0.0-0.5); #Monocytes 0.4 10x3/uL (0.0-1.1); #Neutrophils 1.3 10x3/uL (1.5-8.4); %Basophils 0.9 % (0.0-2.0); %Eosinophils 2.2 % (0.0-6.0); %Monocytes 18.3 % (0.0-10.0); %Neutrophils 55.2 % (40.0-75.0); Hematocrit 40.7 % (38.8-50.0); Hemoglobin 13.7 g/dL (13.5-17.5); Mean Corpuscular HGB CONC 33.7 g/dL (32.0-36.0); Mean Corpuscular Hemoglobin 33.7 pg (27.0-33.0); Mean Corpuscular Volume 100.2 fl (81.2-95.1); Mean Platelet Volume 9.3 fl (7.4-10.4); Platelet Count 88 10x3/uL (150-450); RBC Distribution Width 13.2 % (11.5-14.5); Red Blood Cell (RBC) Count 4.06 10x6/uL (4.32-5.72); White Blood Cell (WBC) Count 2.3 10x3/uL (3.5-10.5)
[2023-08-01 09:26] LABS: INR-International Normal Ratio 1.2; Prothrombin Time 12.9 sec (9.5-12.1)
== END 2023-08-01 08:53 | disposition home or self-care (01) ==
LOC: CSHULT 07:31
PROVIDERS: ATTEND Physician Assistant Medical
PROC: 0W9G30Z Drainage of Peritoneal Cavity with Drainage Device, Percutaneous Approach (ICD-10-PCS; principal; 2023-08-01)
DX: K70.31 Alcoholic cirrhosis of liver with ascites (principal); Z88.8 Allergy status to other drugs, medicaments and biological substances
CPT/HCPCS: 76705; 85025; 85610

== ENCOUNTER 2023-08-29 07:28 | Day surgery (SDC) | payer OTHER ==
[2023-08-29 08:17] VITALS: BP 137/80; TEMP 98.4
== END 2023-08-29 08:15 | disposition home or self-care (01) ==
LOC: CSHULT 07:28
PROVIDERS: ATTEND Physician Assistant Medical
DX: K70.31 Alcoholic cirrhosis of liver with ascites (principal); Z88.8 Allergy status to other drugs, medicaments and biological substances; Z53.9 Procedure and treatment not carried out, unspecified reason
CPT/HCPCS: 76705

== ENCOUNTER 2023-09-12 07:22 | Day surgery (SDC) | payer OTHER ==
[2023-09-12 08:18] VITALS: BP 134/87; TEMP 99.1
== END 2023-09-12 08:00 | disposition home or self-care (01) ==
LOC: CSHULT 07:22
PROVIDERS: ATTEND Physician Assistant Medical
DX: R18.8 Other ascites (principal)
CPT/HCPCS: 76705